=== PATIENT | male | born 1950 | race Caucasian/White ===

== ENCOUNTER → 2018-12-09 12:50 | Outpatient (CLI) | payer OTHER, SELFPAY ==
--- NOTE | 2018-12-09 12:52 | DI.MRI.S_ITS ---
PROCEDURE: MR KNEE LT WO CON INDICATIONS: Knee pain, injury TECHNIQUE: Noncontrast sagittal PD fast spin echo and T2 fast spin echo with fat saturation, sagittal 3-D FLASH with fat saturation; coronal T1 spin echo and PD fast spin echo with fat saturation, and axial PD fast spin echo with fat saturation through the knee. COMPARISON: None. FINDINGS: Image quality: Excellent. Menisci: There is linear hyperintense signal in the posterior horn of the medial meniscus, not extending to the articular surface, likely intrasubstance degeneration or nondisplaced degenerative tear. The lateral meniscus demonstrates normal morphology and internal signal. The meniscal root ligaments appear intact. Cruciate ligaments: The anterior and posterior cruciate ligaments appear intact. Medial structures: The medial collateral ligament appears intact. The semimembranosus tendon insertionsand meniscocapsular junction appear intact. Visualized portions of the pes anserinus tendons appear normal. No abnormal bursal fluid. Lateral structures: The lateral collateral ligament and the biceps femoris tendon appear intact. The popliteus tendon appears normal; the popliteofibular ligament appears intact. fabellofibular ligaments appear intact, on either side of the lateral inferior geniculate artery. Iliotibial band appears normal. Anterior structures: The quadriceps and patellar tendons appear intact. Patellar alignment is normal. No femoral trochlear dysplasia or ventral trochlear prominence. No edema in the infrapatellar fat pad. Bones and cartilage: No bone marrow contusions or fractures. There is cartilage thinning and fibrillation of the medial and lateral femorotibial compartments, as well as the patellofemoral compartment. Joint space: There is small knee joint effusion. A small Sarah's cyst. Normal appearing synovial plicae are incidentally noted. IMPRESSION: 1. Intrasubstance degeneration versus nondisplaced degenerative tear of the posterior horn of the medial meniscus. 2. Tricompartmental cartilage thinning and fibrillation. 3. Small knee joint effusion. 4. A small Sarah's cyst. Dictated by: Andrew Cassidy M.D. on 12/09/2018 at 13:58 Approved by: Andrew Cassidy M.D. on 12/09/2018 at 14:06
== END ==
PROVIDERS: PCP Student in an Organized Health Care Education/Training Program; Visit Provider Student in an Organized Health Care Education/Training Program
DX: M25.562 Pain in left knee (principal); M25.462 Effusion, left knee; M71.22 Synovial cyst of popliteal space [Baker], left knee
CPT/HCPCS: 73721

== ENCOUNTER → 2019-10-02 15:46 | Outpatient (CLI) | payer MEDICARE, OTHER, SELFPAY ==
[2019-10-02 17:38] LABS: Alanine Aminotransferase 25 IU/L (<50); Albumin 3.9 g/dL (3.5-5.0); Albumin Globulin Ratio 1.3 (1.0-2.8); Alkaline Phosphatase 65 U/L (38-126); Aspartate Aminotransferase 45 IU/L (17-59); Bilirubin Total 0.6 mg/dL (0.2-1.3); Bilirubin Unconjugated 0.5 mg/dL (0.0-1.1); Globulin 2.9 g/dL (1.7-4.1); HEMOLYSIS < 15 (0-50); Total Protein 6.8 g/dL (6.3-8.2)
== END ==
PROVIDERS: PCP Student in an Organized Health Care Education/Training Program; Referring Provider Student in an Organized Health Care Education/Training Program; Visit Provider Student in an Organized Health Care Education/Training Program
DX: Z12.5 Encounter for screening for malignant neoplasm of prostate (principal); F10.10 Alcohol abuse, uncomplicated
CPT/HCPCS: 36415; 80076; G0103

== ENCOUNTER → 2020-08-24 11:57 | Outpatient (CLI) | payer MEDICARE, OTHER, SELFPAY ==
[2020-08-24 12:35] LABS: COVID19 -Nasal RAPID Negative (Negative)
== END ==
PROVIDERS: PCP Student in an Organized Health Care Education/Training Program; Visit Provider Physician Assistant
DX: Z01.812 Encounter for preprocedural laboratory examination (principal); Z20.822 Contact with and (suspected) exposure to COVID-19
CPT/HCPCS: 87635; C9803

== ENCOUNTER 2020-08-26 07:20 | Day surgery (SDC) | payer MEDICARE, OTHER, SELFPAY ==
[2020-08-25 08:33] VITALS: BMI 23.7
[2020-08-26] VITALS (8 sets, daily range): BP systolic 98–139; BP diastolic 62–88; PULSE 45–53; RESP 12–16; TEMP 36.2–36.4; O2SAT 96–98; BMI 23.7
[2020-08-26] MEDS: LACTATED RINGERS 1,000 ML 100 ML IV (07:59)
--- NOTE | 2020-08-26 09:11 | PM.PREOP ---
Pre-operative Note COVID-19 COVID-19 status: Negative Result date/Date tested (Pos, Neg/Pending): 08/24/20 Interval Note History & Physical reviewed/Exam performed by Physician: Yes Changes to H&P: No
--- NOTE | 2020-08-26 09:11 | PM.OP.1 ---
Operative Date/Time/Diagnoses Date of procedure: 08/26/20 Time of procedure: 09:11 Pre-op diagnosis: Right foot painful bunion Post-op diagnosis: same Procedure & Clinicians Procedure: Right bunionectomy Same procedure as scheduled: Yes Indications: 70-year-old male with painful symptoms of bunion on the right foot. Conservative measures failed to alleviate his pain and he wished to have surgical intervention at this time. We spoke of the risks, potential complications, as well as expected outcomes. Consent was signed, no contraindications to the procedure at this time. Surgeon: Krystina Diego Click Yes if Unassisted: Yes Anesthesia Type: General Operative Notes Closure Type: primary Specimen(s): none sent Estimated Blood Loss (mL): 15 Blood products transfused: none Procedure in detail: The patient was brought to the operating room and placed on the operating table in the supine position. Tourniquet was placed about the right ankle. Well padded appropriately aligned. After induction of general anesthesia the right foot and ankle were prepped and draped in the usual aseptic manner. The tourniquet was inflated. Incision was made over the right 1st metatarsal phalangeal joint. The incision was deepened through subcutaneous tissues being careful to identify and retract all vital neurovascular structures. All bleeders were cauterized and ligated as necessary. A medial capsulotomy was performed to the 1st MTPJ exposing the enlarged medial eminence. Of note the medial metatarsal head showed some linear wearing of cartilage surface less than a 5th of the surface. The saw was used to resect the medial eminence which reduced the majority of the cartilage wear on that side. The area was irrigated with copious amounts normal sterile saline. The great toe was placed in linear alignment and the medial 1st MTP redundant capsule was resected and repaired with Vicryl and ticron. The tourniquet was deflated and a slow hyperemic response was seen in the foot but did return. Deep and subcutaneous closure was closed performed with Vicryl, and Nylon suture to the skin. The foot was dressed with a lightly compressive sterile dressing and splint in alignment. Patient was then placed in a postoperative shoe and transferred to PACU with vital signs stable Complications: none Post-operative Condition: stable Disposition: PACU Plan for aftercare: Following a period of postoperative monitoring, the patient be discharged home on written and oral postoperative instructions including keeping the dressing dry and intact, avoiding significant ambulation on the foot, and elevating the foot when seated home. DVT prevention techniques have been reviewed. For the 1st postoperative visit the dressing will be changed and close to the 3rd postoperative week we will likely remove the sutures. He requested medication called into pharmacy for breakthrough pain, and it was sent to [facility]/325mg tabs with instruction for use.
[2020-08-26] MEDS: CEFAZOLIN 1 GM VIAL 2 GM IV (09:50)
--- NOTE | 2020-08-26 09:57 | SUR.OPER ---
Supine on padded OR bed, head on pillow, arms secured on padded arm boards at <90 degrees abduction, legs uncrossed, safety belt at thigh, tape over blanket over lower left leg, right leg draped free, gel bump under right thigh.
[2020-08-26] MEDS: BUPIVACAINE 0.5% (PF) VIAL 30 ML INJ (10:05)
[2020-08-26] MEDS: LIDOCAINE 2% INJ MDV 20 ML INJ (10:16)
--- NOTE | 2020-08-26 11:19 | SUR.PHASEII ---
1116 Report from Meg Higgins. Assumed care of patient. Alert, oriented and taking amanda bhanu.
== END 2020-08-26 11:49 | disposition home or self-care (01) ==
PROVIDERS: PCP Student in an Organized Health Care Education/Training Program; Referring Provider Podiatrist; Visit Provider Podiatrist
PROC: 0QBN0ZZ Excision of Right Metatarsal, Open Approach (ICD-10-PCS; CPT 28292; principal; 2020-08-26 09:15)
DX: M20.11 Hallux valgus (acquired), right foot (principal); Z86.718 Personal history of other venous thrombosis and embolism
CPT/HCPCS: 28292; J0690; J2405; J2704; J3010

== ENCOUNTER → 2020-10-04 10:46 | Outpatient (CLI) | payer MEDICARE, OTHER, SELFPAY ==
[2020-10-04 11:13] LABS: COVID19 -Nasal RAPID Negative (Negative)
== END ==
PROVIDERS: PCP Student in an Organized Health Care Education/Training Program; Referring Provider Student in an Organized Health Care Education/Training Program; Visit Provider Student in an Organized Health Care Education/Training Program
DX: Z20.822 Contact with and (suspected) exposure to COVID-19 (principal)
CPT/HCPCS: 87635

== ENCOUNTER → 2020-10-04 10:54 | Outpatient (CLI) | payer MEDICARE, OTHER, SELFPAY ==
[2020-10-04 12:08] LABS: Alanine Aminotransferase 17 IU/L (<50); Albumin 3.7 g/dL (3.5-5.0); Albumin Globulin Ratio 1.2 (1.0-2.8); Alkaline Phosphatase 69 U/L (38-126); Aspartate Aminotransferase 35 IU/L (17-59); BUN Creatinine Ratio 27.6 (6-22); Bilirubin Total 0.5 mg/dL (0.2-1.3); Blood Urea Nitrogen 21 mg/dL (9-20); Calcium 9.4 mg/dL (8.4-10.2); Carbon Dioxide 31 mmol/L (22-32); Chloride 105 mmol/L (98-107); Cholesterol 214 mg/dL (140-199); Estimated Glomerular Filt Rate > 60.0 mL/min (>60); Globulin 3.2 g/dL (1.7-4.1); Glucose 91 mg/dL (80-110); HDL Cholesterol 82 mg/dL (40-60); HEMOLYSIS < 15 (0-50); LDL Cholesterol Calculated 120 mg/dL (<100); Potassium 4.5 mmol/L (3.4-5.1); Sodium 138 mmol/L (137-145); Total Protein 6.9 g/dL (6.3-8.2); Triglycerides 58 mg/dL (35-150)
[2020-10-04 12:35] LABS: TSH w/ Reflex to FT4 1.37 uIU/mL (0.47-4.68)
[2020-10-04 12:39] LABS: Prostate Specific Antigen Scrn 1.25 ng/mL (0.1-4.0)
== END ==
PROVIDERS: PCP Student in an Organized Health Care Education/Training Program; Referring Provider Student in an Organized Health Care Education/Training Program; Visit Provider Student in an Organized Health Care Education/Training Program
DX: E03.9 Hypothyroidism, unspecified (principal); I10 Essential (primary) hypertension; Z12.5 Encounter for screening for malignant neoplasm of prostate; F10.10 Alcohol abuse, uncomplicated; Z20.822 Contact with and (suspected) exposure to COVID-19
CPT/HCPCS: 36415; 80053; 80061; 84443; 87635; G0103

== ENCOUNTER → 2021-06-23 09:13 | Outpatient (CLI) | payer MEDICARE, OTHER, SELFPAY ==
--- NOTE | 2021-06-23 | DI.MRI.S_ITS ---
PROCEDURE: MR KNEE RT WO CON INDICATIONS: Pain in right knee TECHNIQUE: Noncontrast sagittal PD fast spin echo and T2 fast spin echo with fat saturation, sagittal 3-D FLASH with fat saturation; coronal T1 spin echo and PD fast spin echo with fat saturation, and axial PD fast spin echo with fat saturation through the knee. COMPARISON: [facility], MR, MR KNEE LT WO CON, 12/09/2018, 13:02. FINDINGS: Image quality: Excellent. Menisci: The medial meniscus appears intact. Indistinctness of the lateral meniscus anterior root, concerning for tear. Cruciate ligaments: The anterior and posterior cruciate ligaments appear intact. Medial structures: The medial collateral ligament appears intact. Visualized portions of the pes anserinus tendons appear normal. No abnormal bursal fluid. Lateral structures: The lateral collateral ligament complex appear intact. The popliteus tendon is deficient, concerning for tendinopathy/partial tear at the femoral attachment. Iliotibial band appears normal. Anterior structures: The quadriceps and patellar tendons appear intact. Patellar alignment is normal. No edema in the infrapatellar fat pad. Bones and cartilage: No bone marrow contusions or fractures. Signal heterogeneity and thinning of the tricompartment hyaline cartilage. Small fissure of the medial patellar facet hyaline cartilage. Joint space: Small to moderate knee joint fluid. No substantial Sarah's cyst. IMPRESSION: 1. Tendinopathy and/or partial tear of the popliteus tendon. 2. 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 3. Small to moderate knee joint effusion. 4. Suggestion of anterior root tear of the lateral meniscus. Dictated by: Sanju Anne M.D. on 06/23/2021 at 11:09 Approved by: Sanju Anne M.D. on 06/23/2021 at 11:22
== END ==
PROVIDERS: PCP Student in an Organized Health Care Education/Training Program; Referring Provider Orthopaedic Surgery; Visit Provider Orthopaedic Surgery
DX: M22.41 Chondromalacia patellae, right knee (principal); M25.461 Effusion, right knee; M25.561 Pain in right knee
CPT/HCPCS: 73721

== ENCOUNTER → 2022-03-20 14:01 | Outpatient (CLI) | payer MEDICARE, OTHER, SELFPAY ==
[2022-03-20 16:00] LABS: Alanine Aminotransferase 17 IU/L (<50); Alkaline Phosphatase 73 U/L (38-126); Aspartate Aminotransferase 31 IU/L (17-59); BUN Creatinine Ratio 18.9 (6-22); Bilirubin Total 0.7 mg/dL (0.2-1.3); Blood Urea Nitrogen 18 mg/dL (9-20); Calcium 8.8 mg/dL (8.4-10.2); Carbon Dioxide 32 mmol/L (22-32); Chloride 101 mmol/L (98-107); Estimated Glomerular Filt Rate > 60 mL/min (>60); Glucose 135 mg/dL (80-110); HEMOLYSIS < 15 (0-50); Potassium 4.1 mmol/L (3.4-5.1); Sodium 137 mmol/L (137-145); Total Protein 7.2 g/dL (6.3-8.2)
[2022-03-20 16:29] LABS: Prostate Specific Antigen Scrn 1.28 ng/mL (0.1-4.0)
[2022-03-22 20:25] LABS: Hep C Virus Ab w/Reflex Quant NEGATIVE s/c (NEGATIVE)
[2022-03-23 16:19] LABS: Albumin 3.8 g/dL (3.5-5.0); Albumin Globulin Ratio 1.1 (1.0-2.8); Globulin 3.4 g/dL (1.7-4.1)
== END ==
PROVIDERS: PCP Student in an Organized Health Care Education/Training Program; Referring Provider Student in an Organized Health Care Education/Training Program; Visit Provider Student in an Organized Health Care Education/Training Program
DX: Z12.5 Encounter for screening for malignant neoplasm of prostate (principal); E78.2 Mixed hyperlipidemia; F10.10 Alcohol abuse, uncomplicated; I10 Essential (primary) hypertension; Z11.59 Encounter for screening for other viral diseases
CPT/HCPCS: 36415; 80053; 86803; G0103